=== PATIENT | female | born 1985 | race Two or more races ===

== ENCOUNTER 2017-07-18 07:33 | Emergency (ER) | payer OTHER ==
[~2017-07-18] VITALS: Ht 160 cm; Wt 54.9 kg
[~2017-07-18 07:33] MED LIST: BENADRYL25 MG PO; CEFTIN500 MG PO; DOLOGESIC 500-1 EACH PO; FLAGYL500MG PO; MOTRIN600 MG PO; ORASEP SPRAY30 ML MM; SEPTRA DS TABLE1 TAB PO; ZITHROMAX PO; ZYRTEC10 M3 PO; ZYRTEC10 MG PO
== END 2017-07-18 11:14 | disposition home or self-care (01) ==
LOC: ER 07:33
DX: S60.222A Contusion of left hand, initial encounter (principal); S60.221A Contusion of right hand, initial encounter; W50.0XXA Accidental hit or strike by another person, initial encounter; Y93.89 Activity, other specified; Y92.89 Other specified places as the place of occurrence of the external cause; Y99.8 Other external cause status

== ENCOUNTER 2017-09-27 21:39 | Emergency (ER) | payer OTHER ==
[~2017-09-27] VITALS: Ht 160 cm; Wt 53.1 kg
[2017-09-27] MEDS ORDERED: augmentin PO (22:37)
[2017-09-27] MEDS ORDERED: CLARITIN-D 121 EACH PO (22:37)
[2017-09-27] MEDS ORDERED: FLONASE16 GM TOP (22:37)
== END 2017-09-27 22:52 | disposition home or self-care (01) ==
LOC: ER 21:39
DX: J32.8 Other chronic sinusitis (principal)

== ENCOUNTER 2017-12-05 18:53 | Emergency (ER) | payer OTHER ==
[~2017-12-05] VITALS: Ht 160 cm; Wt 52.2 kg
[~2017-12-05 18:53] MED LIST changes: +CLARITIN-D 121 EACH PO; +FLONASE16 GM TOP; +augmentin PO
== END 2017-12-05 22:30 | disposition home or self-care (01) ==
LOC: ER 18:53
DX: N73.8 Other specified female pelvic inflammatory diseases (principal); N76.0 Acute vaginitis; R10.2 Pelvic and perineal pain

== ENCOUNTER → 2018-02-12 | Emergency (ER) | payer OTHER ==
[~2018-02-12] VITALS: Ht 160 cm; Wt 70.3 kg
== END | disposition left against medical advice (07) ==
LOC: ER 21:40
DX: R10.2 Pelvic and perineal pain (principal)

== ENCOUNTER 2018-08-19 13:48 | Outpatient (CLI) | payer OTHER | END 2018-08-19 16:55 | disposition home or self-care (01) | LOC: OBS/DEL 13:48 | DX: O26.893 Other specified pregnancy related conditions, third trimester (principal); R10.2 Pelvic and perineal pain; R55 Syncope and collapse; R51 Headache; Z34.83 Encounter for supervision of other normal pregnancy, third trimester ==

== ENCOUNTER 2018-10-07 09:55 | Inpatient (IN) | payer OTHER ==
[~2018-10-07] VITALS: Ht 160 cm; Wt 63.5 kg
[2018-10-07] MEDS ORDERED: PRENATAL TABLE1 EAC1 PO (10:23)
== END 2018-10-09 14:17 | DRG 807 ==
LOC: LDR 09:55 → OB/GYN 09:55
PROVIDERS: ADMIT Obstetrics & Gynecology
PROC: 10E0XZZ Delivery of Products of Conception, External Approach (ICD-10-PCS; principal; 2018-10-07)
PROC: 4A0HXFZ Measurement of Products of Conception, Cardiac Rhythm, External Approach (ICD-10-PCS; 2018-10-07)
DX: O80 Encounter for full-term uncomplicated delivery (principal); Z37.0 Single live birth; Z3A.39 39 weeks gestation of pregnancy

== ENCOUNTER 2019-06-12 21:20 | Emergency (ER) | payer OTHER ==
[~2019-06-12] VITALS: Ht 160 cm; Wt 47.6 kg
[~2019-06-12 21:20] MED LIST changes: +PRENATAL TABLE1 EAC1 PO
[2019-06-12] MEDS ORDERED: DOLOGEN CAPLET1 EACH PO (23:47)
[2019-06-12] MEDS ORDERED: TUSNEL LIQUID178 ML PO (23:47)
[2019-06-12] MEDS ORDERED: OSEL75CA PO (23:47)
== END 2019-06-13 00:56 | disposition home or self-care (01) ==
LOC: ER 21:20
DX: J11.1 Influenza due to unidentified influenza virus with other respiratory manifestations (principal)

== ENCOUNTER 2021-03-25 09:03 | Emergency (ER) | payer OTHER ==
[~2021-03-25] VITALS: Ht 160 cm; Wt 58.1 kg
[~2021-03-25 09:03] MED LIST changes: +DOLOGEN CAPLET1 EACH PO; +OSEL75CA PO; +TUSNEL LIQUID178 ML PO
== END 2021-03-25 11:38 | disposition home or self-care (01) ==
LOC: ER 09:03
DX: H66.91 Otitis media, unspecified, right ear (principal)

== ENCOUNTER 2021-08-26 20:12 | Emergency (ER) | payer OTHER ==
[~2021-08-26] VITALS: Ht 160 cm; Wt 57.2 kg
[2021-08-26] MEDS ORDERED: AMOX-CLAV 875-1 EACH PO (20:38)
== END 2021-08-26 21:42 | disposition home or self-care (01) ==
LOC: ER 20:12
DX: J03.90 Acute tonsillitis, unspecified (principal)